=== PATIENT | male | born 1960 | race Caucasian/White ===

== ENCOUNTER 2020-06-29 08:33 | Day surgery (SDC) | payer OTHER ==
[~2020-06-29] VITALS: Ht 172.7 cm; Wt 93.0 kg
[~2020-06-29 08:33] MED LIST: ATOR20 PO; LEVE500 PO; METO25ER PO
[2020-06-29] MEDS ORDERED: Aspir 8181 MG PO (09:31)
--- NOTE | 2020-06-29 10:17 | NUR ---
PT IS AWAKE AND VERBALIZING WELL.
== END 2020-06-29 14:00 | disposition home or self-care (01) ==
LOC: MHTC 08:33
DX: I35.2 Nonrheumatic aortic (valve) stenosis with insufficiency (principal); I71.00 Dissection of unspecified site of aorta; E78.00 Pure hypercholesterolemia, unspecified; R56.9 Unspecified convulsions; I51.7 Cardiomegaly; Z79.82 Long term (current) use of aspirin; Z86.73 Personal history of transient ischemic attack (TIA), and cerebral infarction without residual deficits; Z86.79 Personal history of other diseases of the circulatory system
CPT/HCPCS: 93312; 93325; A9270; J7030